=== PATIENT | female | born 1965 | race Caucasian/White ===

== ENCOUNTER 2018-11-10 17:41 | Emergency (ER) | payer OTHER ==
[~2018-11-10] VITALS: Wt 74.4 kg
[~2018-11-10 17:41] MED LIST: CEPH-443 PO; HYDR-4011 PO; IBUP-1542 PO
[2018-11-10] MEDS ORDERED: KETOROLAC 15 MG INJ IV STA (20:06)
[2018-11-10] MEDS ORDERED: SOD CHLORIDE 0.9% 1,000 ML IV STA (20:06)
[2018-11-10] MEDS ORDERED: CEFTRIAXONE 1 GM/50 ML (PMX) 50 ML IVPB ONE (21:00)
[2018-11-10 22:15] VITALS: BP 122/81; PULSE 64; RESP 18
== END 2018-11-10 22:19 | disposition home or self-care (01) ==
LOC: E/R 17:41
DX: M54.6 Pain in thoracic spine (principal); R10.30 Lower abdominal pain, unspecified
CPT/HCPCS: 36415; 74176; 80053; 81001; 83690; 85025; 87086; 96361; 96374; 96375; J0696; J1885; J7030; Z7502